=== PATIENT | female | born 1960 | race Caucasian/White ===

== ENCOUNTER → 2024-04-29 16:01 | Outpatient (REF) | payer OTHER, SELFPAY | LOC: HWRCS 16:01 | PROVIDERS: ATTENDING PHYSICIAN Internal Medicine Cardiovascular Disease; FAMILY PHYSICIAN Family Medicine | DX: R06.09 Other forms of dyspnea (principal) | CPT/HCPCS: 93306 ==

== ENCOUNTER → 2024-06-10 07:37 | Outpatient (REF) | payer OTHER, SELFPAY | LOC: HWRCS 07:37 | PROVIDERS: ATTENDING PHYSICIAN Internal Medicine Cardiovascular Disease; FAMILY PHYSICIAN Family Medicine | DX: R06.09 Other forms of dyspnea (principal) | CPT/HCPCS: 78452; 93017; A9500; J2785 ==